=== PATIENT | female | born 2000 | race Caucasian/White ===

== ENCOUNTER 2022-05-22 00:53 | Inpatient (IN) ==
[2022-05-22 01:33] LABS: Basophils # (auto) 0.05 K/uL (0-0.2); Basophils % (auto) 0.4 %; Eosinophils # (auto) 0.04 K/uL (0-0.50); Eosinophils % (auto) 0.3 %; Hematocrit (blood only) 39.3 % (37.0-47.0); Hemoglobin 14.1 g/dl (12.0-16.0); Immature Granulocytes # (auto) 0.05 K/uL (0.01-0.20); Immature Granulocytes % (auto) 0.4 %; Lymphocytes # (auto) 1.04 K/uL (1.2-3.4); Mean Corpuscular Hemoglobin 30.1 pg (25.0-34.0); Mean Corpuscular Hgb Conc 35.9 g/dL (32.0-36.0); Mean Corpuscular Volume 83.8 fL (80.0-100.0); Mean Platelet Volume 9.7 fL (9.4-12.4); Monocytes # (auto) 0.73 K/uL (0.11-0.59); Monocytes % (auto) 5.6 %; Neutrophils # (auto) 11.13 K/uL (1.40-6.50); Neutrophils % (auto) 85.3 %; Platelet Count 260 K/uL (130-400); RDW Coefficient of Variation 12.1 % (11.5-14.5); RDW Standard Deviation 36.6 fL (36.4-46.3); Red Blood Count 4.69 M/uL (4.20-5.40); White Blood Count 13.04 K/ul (4.8-10.8)
--- NOTE | 2022-05-22 01:33 | Emergency Department Note ---
History of Present Illness General Chief complaint: Anxiety Stated complaint: PANICK ATTACK Time Seen by Provider: 05/22/22 01:10 History of Present Illness Maximum Pain Intensity: 6 22-year-old female presents emergency department states that she has anxiety and a panic attack. Patient recently broke up with her boyfriend of 2 years approximately 2 weeks ago and states that she has been having a rough time since. Patient states today she did cut herself in the thighs bilaterally. She did speak to her segment assembler today was placed on Lexapro for which she started this morning. Patient states that she had increased thoughts this evening racing thoughts she states and then had a panic attack. Patient denies any alcohol or drug ingestion. Patient has never been admitted for inpatient psychiatric treatment. Patient has no other complaints at this time Home Medications Medication Instructions Recorded Confirmed Type escitalopram oxalate 5 mg tablet 5 mg PO DAILY 05/22/22 05/22/22 History hydroxyzine HCl 25 mg tablet 25 mg PO TID PRN Anxiety 05/22/22 05/22/22 History Allergies Allergy/AdvReac Type Severity Reaction Status Date / Time No Known Allergies Allergy Verified 05/22/22 01:50 Past Med/Surg History Social History Smoking Status: Current some day smoker Tobacco Type: Cigarettes Hx Alcohol Use: No Hx Substance Use: No Feels Safe at Home: Yes Gender Identity: Female Immunizations: Past medical history is anxiety Review of Systems A total of 10 systems reviewed and were otherwise negative Psychiatric: + anxiety Physical Exam Vital Signs Vital Signs - 24 hr 05/22/22 00:56 05/22/22 01:51 05/22/22 03:00 Temperature 36.5 C Temperature Source Temporal Artery Scan Pulse Rate 133 H Pulse Rate [Finger] 112 H 98 H Pulse Rhythm [Finger] Regular Pulse Strength [Finger] Normal Respiratory Rate 20 24 20 Respiratory Effort / Characteristics Non-Labored Spontaneous Non-Labored Spontaneous Non-Labored Spontaneous Respiratory Depth Normal Normal Normal Respiratory Pattern Regular Blood Pressure 92/4 L Blood Pressure [Right Arm] 127/76 128/73 Blood Pressure Mean 33 Blood Pressure Mean [Right Arm] 93 91 Blood Pressure Position [Right Arm] Sitting Pulse Oximetry 100 97 98 Oxygen Delivery Method Room Air Room Air Room Air Sepsis Recent Fever Within 48 Hours No Sepsis New/Unexplained Change in Mental Status N/A Sepsis Action Taken by Nursing No Action Required GENERAL: Patient is awake alert in no acute distress patient is resting comfortably and showing no signs of anxiety EYES: The conjunctivae are clear. The pupils are round and reactive. EARS, NOSE, MOUTH AND THROAT: The nose is without any evidence of any deformity. Mucous membranes are moist. Tongue is midline. NECK: The neck is nontender and supple RESPIRATORY: Normal respiratory effort is noted there is no evidence of wheezing rhonchi or rales CARDIOVASCULAR: Regular rate and rhythm noted there no murmurs rubs or gallops normal S1 normal S2. GASTROINTESTINAL: The abdomen is soft. Abdomen is nontender. BACK: No midline tenderness or or step-off noted range of motion in flexion extension as well as rotation no signs of muscle spasm noted MUSCULOSKELETAL/EXTREMITIES: There is no evidence of gross deformity full range of motion is noted in the hips and shoulders. SKIN: There is no obvious evidence of any rash. There are no petechiae, pallor or cyanosis noted. NEUROLOGIC: Patient is awake alert and oriented x3 strength is symmetric Psych: anxious, current suicidal ideation no homicidal ideation Course Reevaluation(s) Reevaluation #1: Patient has been accepted by [facility] Patient is stable per home health care case manager. Patient will be admitted Time: 05:18 Medical Decision Making Medical Records Attestation: I reviewed the patient's medical records. Home Medications Current Medication List: was personally reviewed by me Laboratory Data Attestation: I reviewed the patient's lab results. Lab work reviewed by me unremarkable 05/22/22 01:20 05/22/22 01:20 Lab Results 05/22/22 05/22/22 05/22/22 Range/Units 01:05 01:05 01:05 WBC (4.8-10.8) K/ul RBC (4.20-5.40) M/uL Hgb (12.0-16.0) g/dl Hct (37.0-47.0) % MCV (80.0-100.0) fL MCH (25.0-34.0) pg MCHC (32.0-36.0) g/dL RDW Std Deviation (36.4-46.3) fL RDW Coeff of Serene (11.5-14.5) % Plt Count (130-400) K/uL MPV (9.4-12.4) fL Immature Gran % (Auto) % Neut % (Auto) % Lymph % (Auto) % [place] % (Auto) % Eos % (Auto) % Baso % (Auto) % Neut # (Auto) (1.40-6.50) K/uL Lymph # (Auto) (1.2-3.4) K/uL [place] # (Auto) (0.11-0.59) K/uL Eos # (Auto) (0-0.50) K/uL Baso # (Auto) (0-0.2) K/uL Immature Gran # (Auto) (0.01-0.20) K/uL Sodium (136-145) mmol/L Potassium (3.5-5.1) mmol/L Chloride (98-107) mmol/L Carbon Dioxide (21-32) mmol/L Anion Gap (3-11) BUN (6-23) mg/dl Creatinine (0.6-1.2) mg/dl Est Cr Clr Drug Dosing ml/min Est GFR ( Amer) ml/min Est GFR (Non-Af Amer) ml/min BUN/Creatinine Ratio (10-20) Glucose (70-99(Fasting)) mg/dl Calcium (8.5-10.1) mg/dl Total Bilirubin (0.2-1.0) mg/dl AST (13-39) U/L ALT (7-52) U/L Alkaline Phosphatase (34-104) U/L Total Protein (6.0-8.3) gm/dl Albumin (3.4-5.0) gm/dl Globulin (2.5-4.0) gm/dl Albumin/Globulin Ratio (0.9-2) TSH (0.300-4.500) uIu/ml Urine Color Yellow Urine Appearance Clear (Clear) Urine pH 6.5 (4.5-7.5) Ur Specific [place] 1.020 (1.000-1.030) Urine Protein Negative (Negative) Urine Glucose (UA) Negative (Negative) Urine Ketones Negative (Negative) Urine Blood Negative (Negative) Urine Nitrite Negative (Negative) Urine Bilirubin Negative (Negative) Urine Urobilinogen Negative (Negative) Ur Leukocyte Esterase Negative (Negative) POC Ur Test NEG (NEG) Salicylates (3.0-30) mg/dl Urine Opiates Screen Neg (Neg) Ur Methadone, Qual Neg (Neg) Acetaminophen (10-30) ug/ml Urine Barbiturates Neg (Neg) Ur Phencyclidine (PCP) Neg (Neg) U Amphetamin/Meth Scrn Neg (Neg) MDMA (Ecstasy) Screen Neg (Neg) U Benzodiazepines Scrn Neg (Neg) Ur Cocaine Metabolite Neg (Neg) U Marijuana (THC) Screen Neg (Neg) Ethyl Alcohol mg/dL (<10.0) mg/dl SARS-CoV-2, RNA, NAAT (NEGATIVE) 05/22/22 05/22/22 05/22/22 Range/Units 01:05 01:20 01:20 WBC 13.04 H (4.8-10.8) K/ul RBC 4.69 (4.20-5.40) M/uL Hgb 14.1 (12.0-16.0) g/dl Hct 39.3 (37.0-47.0) % MCV 83.8 (80.0-100.0) fL MCH 30.1 (25.0-34.0) pg MCHC 35.9 (32.0-36.0) g/dL RDW Std Deviation 36.6 (36.4-46.3) fL RDW Coeff of Serene 12.1 (11.5-14.5) % Plt Count 260 (130-400) K/uL MPV 9.7 (9.4-12.4) fL Immature Gran % (Auto) 0.4 % Neut % (Auto) 85.3 % Lymph % (Auto) 8.0 % [place] % (Auto) 5.6 % Eos % (Auto) 0.3 % Baso % (Auto) 0.4 % Neut # (Auto) 11.13 H (1.40-6.50) K/uL Lymph # (Auto) 1.04 L (1.2-3.4) K/uL [place] # (Auto) 0.73 H (0.11-0.59) K/uL Eos # (Auto) 0.04 (0-0.50) K/uL Baso # (Auto) 0.05 (0-0.2) K/uL Immature Gran # (Auto) 0.05 (0.01-0.20) K/uL Sodium 137 (136-145) mmol/L Potassium 3.5 (3.5-5.1) mmol/L Chloride 104 (98-107) mmol/L Carbon Dioxide 22 (21-32) mmol/L Anion Gap 11 (3-11) BUN 8 (6-23) mg/dl Creatinine 0.64 (0.6-1.2) mg/dl Est Cr Clr Drug Dosing 116.0 ml/min Est GFR ( Amer) 148.9 ml/min Est GFR (Non-Af Amer) 128.5 ml/min BUN/Creatinine Ratio 12.5 (10-20) Glucose 104 H (70-99(Fasting)) mg/dl Calcium 9.7 (8.5-10.1) mg/dl Total Bilirubin 0.9 (0.2-1.0) mg/dl AST 18 (13-39) U/L ALT 18 (7-52) U/L Alkaline Phosphatase 68 (34-104) U/L Total Protein 7.5 (6.0-8.3) gm/dl Albumin 4.6 (3.4-5.0) gm/dl Globulin 2.9 (2.5-4.0) gm/dl Albumin/Globulin Ratio 1.6 (0.9-2) TSH (0.300-4.500) uIu/ml Urine Color Urine Appearance (Clear) Urine pH (4.5-7.5) Ur Specific [place] (1.000-1.030) Urine Protein (Negative) Urine Glucose (UA) (Negative) Urine Ketones (Negative) Urine Blood (Negative) Urine Nitrite (Negative) Urine Bilirubin (Negative) Urine Urobilinogen (Negative) Ur Leukocyte Esterase (Negative) POC Ur Test (NEG) Salicylates (3.0-30) mg/dl Urine Opiates Screen (Neg) Ur Methadone, Qual (Neg) Acetaminophen (10-30) ug/ml Urine Barbiturates (Neg) Ur Phencyclidine (PCP) (Neg) U Amphetamin/Meth Scrn (Neg) MDMA (Ecstasy) Screen (Neg) U Benzodiazepines Scrn (Neg) Ur Cocaine Metabolite (Neg) U Marijuana (THC) Screen (Neg) Ethyl Alcohol mg/dL (<10.0) mg/dl SARS-CoV-2, RNA, NAAT NEGATIVE (NEGATIVE) 05/22/22 05/22/2223 Range/Units 01:20 01:20 01:20 WBC (4.8-10.8) K/ul RBC (4.20-5.40) M/uL Hgb (12.0-16.0) g/dl Hct (37.0-47.0) % MCV (80.0-100.0) fL MCH (25.0-34.0) pg MCHC (32.0-36.0) g/dL RDW Std Deviation (36.4-46.3) fL RDW Coeff of Serene (11.5-14.5) % Plt Count (130-400) K/uL MPV (9.4-12.4) fL Immature Gran % (Auto) % Neut % (Auto) % Lymph % (Auto) % [place] % (Auto) % Eos % (Auto) % Baso % (Auto) % Neut # (Auto) (1.40-6.50) K/uL Lymph # (Auto) (1.2-3.4) K/uL [place] # (Auto) (0.11-0.59) K/uL Eos # (Auto) (0-0.50) K/uL Baso # (Auto) (0-0.2) K/uL Immature Gran # (Auto) (0.01-0.20) K/uL Sodium (136-145) mmol/L Potassium (3.5-5.1) mmol/L Chloride (98-107) mmol/L Carbon Dioxide (21-32) mmol/L Anion Gap (3-11) BUN (6-23) mg/dl Creatinine (0.6-1.2) mg/dl Est Cr Clr Drug Dosing ml/min Est GFR ( Amer) ml/min Est GFR (Non-Af Amer) ml/min BUN/Creatinine Ratio (10-20) Glucose (70-99(Fasting)) mg/dl Calcium (8.5-10.1) mg/dl Total Bilirubin (0.2-1.0) mg/dl AST (13-39) U/L ALT (7-52) U/L Alkaline Phosphatase (34-104) U/L Total Protein (6.0-8.3) gm/dl Albumin (3.4-5.0) gm/dl Globulin (2.5-4.0) gm/dl Albumin/Globulin Ratio (0.9-2) TSH 0.886 (0.300-4.500) uIu/ml Urine Color Urine Appearance (Clear) Urine pH (4.5-7.5) Ur Specific [place] (1.000-1.030) Urine Protein (Negative) Urine Glucose (UA) (Negative) Urine Ketones (Negative) Urine Blood (Negative) Urine Nitrite (Negative) Urine Bilirubin (Negative) Urine Urobilinogen (Negative) Ur Leukocyte Esterase (Negative) POC Ur Test (NEG) Salicylates < 3.0 L (3.0-30) mg/dl Urine Opiates Screen (Neg) Ur Methadone, Qual (Neg) Acetaminophen < 3 L (10-30) ug/ml Urine Barbiturates (Neg) Ur Phencyclidine (PCP) (Neg) U Amphetamin/Meth Scrn (Neg) MDMA (Ecstasy) Screen (Neg) U Benzodiazepines Scrn (Neg) Ur Cocaine Metabolite (Neg) U Marijuana (THC) Screen (Neg) Ethyl Alcohol mg/dL < 10.0 (<10.0) mg/dl SARS-CoV-2, RNA, NAAT (NEGATIVE) MDM Narrative Medical decision making differential diagnosis anxiety, panic attack, suicidal ideation Plan is to check labs, case management consult Nursing notes were reviewed by me and appreciated Case management has interviewed the patient they feel that she has more suicidal ideations and will benefit from inpatient therapy Plan is to admit for inpatient therapy Patient was accepted to [facility] for [facility] treatment Impression & Plan Depression with suicidal ideation, Anxiety Discharge Plan Visit Data Chief Complaint: Anxiety Stated Complaint: PANICK ATTACK ED Provider: Jhon Minaya Discharge Problem: Depression with suicidal ideation, Anxiety Patient Disposition: Admitted As Inpatient Forms Stand Alone Forms: [facility], Suicide Prevention Resources Prescriptions Prescriptions: No Action escitalopram oxalate 5 mg tablet 5 mg PO DAILY hydroxyzine HCl 25 mg tablet 25 mg PO TID PRN (Reason: Anxiety) Referrals Referrals: [facility] [Primary Care Provider] -
[2022-05-22 01:45] LABS: Appearance Urine Clear (Clear); Bilirubin Urine Negative (Negative); Blood Urine Negative (Negative); Color Urine Yellow; Glucose Urine UA Negative (Negative); Ketones Urine Negative (Negative); Leukocyte Esterase Urine Negative (Negative); Nitrite Urine Negative (Negative); Protein Urine Negative (Negative); Urobilinogen Urine Negative (Negative); pH Urine 6.5 (4.5-7.5)
[2022-05-22 01:52] LABS: Albumin Level 4.6 gm/dl (3.4-5.0); Bilirubin,Total 0.9 mg/dl (0.2-1.0); Calcium 9.7 mg/dl (8.5-10.1); Potassium 3.5 mmol/L (3.5-5.1)
[2022-05-22 01:56] LABS: Acetaminophen < 3 ug/ml (10-30); Salicylate < 3.0 mg/dl (3.0-30)
[2022-05-22 01:58] LABS: Albumin Globulin Ratio 1.6 (0.9-2); BUN Creatinine Ratio 12.5 (10-20); Est GFR (African American) 148.9 ml/min; Est GFR (Non-African American) 128.5 ml/min; Globulin 2.9 gm/dl (2.5-4.0); Total Protein 7.5 gm/dl (6.0-8.3)
[2022-05-22 02:24] LABS: Amphetamines+Metham, Urine Neg (Neg); Barbiturates, Urine Neg (Neg); Benzodiazepine, Urine Neg (Neg); Cocaine, Urine Neg (Neg); MDMA (Ecstacy), Urine Neg (Neg); Methadone, Urine Neg (Neg); Opiate, Urine Neg (Neg); Phencyclidine, Urine Neg (Neg)
[2022-05-22] MEDS ORDERED: BISMUTH SUBSALICYLATE LIQD 236 ML PO PRN (05:20)
[2022-05-22] MEDS ORDERED: SODIUM CHLORIDE 0.65% NA SOLN 45 ML (OCEAN) PRN (05:20)
[2022-05-22] MEDS ORDERED: MAGNESIUM HYDROXIDE SUSP 30 ML UDC PO PRN (05:20)
[2022-05-22] MEDS ORDERED: ALUMINUM/MAGNESIUM SUSP 30 ML UDC PO PRN (05:20)
[2022-05-22] MEDS: ESCITALOPRAM OXALATE 10 MG TAB PO SCH (10:01)
[2022-05-22] MEDS: ACETAMINOPHEN 325 MG TAB PO PRN (13:59)
[2022-05-22] MEDS: NICOTINE POLACRILEX 2 MG GUM MT PRN ×2 (14:16→19:56)
--- NOTE | 2022-05-22 17:44 | History & Physical ---
Date of Service May 22, 2022 Impression / Recommendations Impression Worsening depressed mood and panic post-breakup in a young woman with probable OCD (1) Major depressive disorder, single episode, severe without psychotic features: (2) Panic disorder: (3) JENARO (generalized anxiety disorder): Plan Discussed at length prioritizing syndromes by potential severity - i.e., focusing on depresion and panic now while keeping OCD in mind and considering possibility of ADHD later. Discussed at length treatment options, focusing on SNRI, which could be effective for major depression, panic disorder, and OCD. Will start duloxetine [address] of escitalopram with plan of titrating to 40 mg daily as tolerated. Will use hydroxyzine for immediate management of panic/anxiety. Inventory Assets Strengths: intelligent, supportive family members Needs: has little privacy, some stigma about treatment Suicide Risk Level Suicide Risk Level: Low (q15 min observation checks) Risk Factors Assessment Male: No : Yes Do You Have Access To A Gun?: No Health Problems: No Mental Health Diagnoses: No Previous Attempt: No Family History of Suicide: No Previous Psychiatric Hospitalization: No Protective Factors Assessment Employed: No Psychiatric History Identifying Data RUBEN ESPINO is a 22-year-old F who currently lives in a 1-bedroom apartment with 3 roommates, has a history of no previously-recognized psychiatric problems, and was admitted on 05/22/22 05:20 on a 201 voluntary commitment for panic and self-cutting. Chief Complaint "I'm just so anxious". History of Present Illness Pt had a recent breakup with her long-distance boyfriend of 2 years recently, which she cites along with the stresses of having started college as what she thinks has led to significant worsening of her long-standing anxiety. She been having increasingly frequent, longer-lasting, and more severe panic episodes. While she says she hasn't felt suicidal, she has felt overwhelmed and helpless and has been cutting in an attempt to "feel something". She has not slept well, has little appetite, and is less interested in as well as less able to enjoy her usual activities. She wonders if she "might have OCD" like her father. She reports constant intrusive self-doubts, a horror of making anyone mad at her, a need to have belongings arranged "properly" in ways she can't really describe. She must keep books pristine to the extent of not actually reading them. She often counts her steps in order to ensure that she arrives at certain waypoints at a multiple of 10. In restaurants she must sit in a specific seat that's dictated by where certain others (including strangers) sit. She notes a family history of anxiety and that her father has severe (and as far she knows untreated) OCD. Past Psychiatric History Previous Psych History: Has never had psychiatric evaluation or treatment (was started on escitalopram by PCP the day prior to presentation) Current Psychiatric Diagnosis: MDD, anxiety, wants to be evaluated for OCD and ADHD Do You Have Access To A Gun?: No History of Previous Suicide Attempt: Yes (at 16y old) Allergies Allergy/AdvReac Type Severity Reaction Status Date / Time No Known Allergies Allergy Verified 05/22/22 01:50 Home Medications Medication Instructions Recorded Confirmed Type escitalopram oxalate 5 mg tablet 5 mg PO DAILY 05/22/22 05/22/22 History hydroxyzine HCl 25 mg tablet 25 mg PO TID PRN Anxiety 05/22/22 05/22/22 History Family History Family History of: Depression and Anxiety Family Mental Health History Comment: Dad - OCD, anxiety, dad's side of family all has anxiety Mom's side does not talk about or acknowledge mental health Alcohol History Hx of Alcohol Use Over the Past 12 Months: No AUDIT Total Score: 0 Smoking Use Have You Smoked or Used Tobacco Products in the Last 30 Days: Yes tobacco type: cigarettes and e-cigarettes Smoking Status: Current some day smoker Smoking packs per day: 0.5 Substance History Hx of Prescription Med Misuse Over the Past 12 Months: No Hx of Over the Counter Med Misuse Over the Past 12 Months: No Hx of Inhalent Misuse Over the Past 12 Months: No Hx of Organic Substance Use Over the Past 12 Months: No Hx of Illegal Substances/Street Drug Use Over Past 12 Months: No Problems as a Result of Past Substance Use: None Identified Personal History Living Arrangements: Apartment Living Arrangements Comments: [address], [place] [address] Highest Grade Completed: Some 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 Marital Status: Single Number Of Children: 0 Beliefs That Will Affect Care: None Patient History Social History Smoking Status: Current some day smoker Tobacco Type: Cigarettes Hx Alcohol Use: No Hx Substance Use: No Preferred Language: [place] Communication Ability: Effective 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 Beliefs That Will Affect Care: None Feels Safe at Home: Yes Gender Identity: Female Assistive Devices: None Physical Exam Psychiatric: Orientation: alert, oriented x 3 and cooperative Apperance: appropriately dressed and appeared stated age Eye Contact: + poor eye contact Motor Behavior: + psychomotor agitation slow, quiet, brief Affect: + anxious affect and + tearful affect Mood: + depressed mood and + anxious mood Thought Process: linear/logical thought process and clear/coherent thought process Thought Content: + obsessions, + cognitive distortions, + compulsions, + phobias and + loneliness Suicidal Thoughts: denies suicidal thoughts Homicidal Thoughts: denies homicidal thoughts Hallucinations: no auditory hallucinations and no visual hallucinations Cognition: recent memory grossly intact, remote memory grossly intact and attention grossly intact Estimated Intelligence: average estimated intelligence Insight: + fair insight Judgement: good judgement Vital Signs (Past 24 Hours): Last Vital Signs Temp 37 C 05/22/22 06:37 Pulse 96 H 05/22/22 06:38 Resp 18 05/22/22 06:37 BP 119/77 05/22/22 06:38 Pulse Ox 98 05/22/22 03:00 O2 Del Method 05/22/22 05:44 Results & Data ([facility]) Laboratory Results Laboratory Results - last 24 hr 05/22/22 05/22/22 05/22/22 01:05 01:05 01:05 WBC RBC Hgb Hct MCV MCH MCHC RDW Std Deviation RDW Coeff of Serene Plt Count MPV Immature Gran % (Auto) Neut % (Auto) Lymph % (Auto) [place] % (Auto) Eos % (Auto) Baso % (Auto) Neut # (Auto) Lymph # (Auto) [place] # (Auto) Eos # (Auto) Baso # (Auto) Immature Gran # (Auto) Sodium Potassium Chloride Carbon Dioxide Anion Gap BUN Creatinine Est Cr Clr Drug Dosing Est GFR ( Amer) Est GFR (Non-Af Amer) BUN/Creatinine Ratio Glucose Calcium Total Bilirubin AST ALT Alkaline Phosphatase Total Protein Albumin Globulin Albumin/Globulin Ratio TSH Urine Color Yellow Urine Appearance Clear Urine pH 6.5 Ur Specific [place] 1.020 Urine Protein Negative Urine Glucose (UA) Negative Urine Ketones Negative Urine Blood Negative Urine Nitrite Negative Urine Bilirubin Negative Urine Urobilinogen Negative Ur Leukocyte Esterase Negative POC Ur Test NEG Salicylates Urine Opiates Screen Neg Ur Methadone, Qual Neg Acetaminophen Urine Barbiturates Neg Ur Phencyclidine (PCP) Neg U Amphetamin/Meth Scrn Neg MDMA (Ecstasy) Screen Neg U Benzodiazepines Scrn Neg Ur Cocaine Metabolite Neg U Marijuana (THC) Screen Neg Ethyl Alcohol mg/dL SARS-CoV-2, RNA, NAAT 05/22/22 05/22/22 05/22/22 01:05 01:20 01:20 WBC 13.04 H RBC 4.69 Hgb 14.1 Hct 39.3 MCV 83.8 MCH 30.1 MCHC 35.9 RDW Std Deviation 36.6 RDW Coeff of Serene 12.1 Plt Count 260 MPV 9.7 Immature Gran % (Auto) 0.4 Neut % (Auto) 85.3 Lymph % (Auto) 8.0 [place] % (Auto) 5.6 Eos % (Auto) 0.3 Baso % (Auto) 0.4 Neut # (Auto) 11.13 H Lymph # (Auto) 1.04 L [place] # (Auto) 0.73 H Eos # (Auto) 0.04 Baso # (Auto) 0.05 Immature Gran # (Auto) 0.05 Sodium 137 Potassium 3.5 Chloride 104 Carbon Dioxide 22 Anion Gap 11 BUN 8 Creatinine 0.64 Est Cr Clr Drug Dosing 116.0 Est GFR ( Amer) 148.9 Est GFR (Non-Af Amer) 128.5 BUN/Creatinine Ratio 12.5 Glucose 104 H Calcium 9.7 Total Bilirubin 0.9 AST 18 ALT 18 Alkaline Phosphatase 68 Total Protein 7.5 Albumin 4.6 Globulin 2.9 Albumin/Globulin Ratio 1.6 TSH Urine Color Urine Appearance Urine pH Ur Specific [place] Urine Protein Urine Glucose (UA) Urine Ketones Urine Blood Urine Nitrite Urine Bilirubin Urine Urobilinogen Ur Leukocyte Esterase POC Ur Test Salicylates Urine Opiates Screen Ur Methadone, Qual Acetaminophen Urine Barbiturates Ur Phencyclidine (PCP) U Amphetamin/Meth Scrn MDMA (Ecstasy) Screen U Benzodiazepines Scrn Ur Cocaine Metabolite U Marijuana (THC) Screen Ethyl Alcohol mg/dL SARS-CoV-2, RNA, NAAT NEGATIVE 05/22/22 05/22/22 05/22/22 01:20 01:20 01:20 WBC RBC Hgb Hct MCV MCH MCHC RDW Std Deviation RDW Coeff of Serene Plt Count MPV Immature Gran % (Auto) Neut % (Auto) Lymph % (Auto) [place] % (Auto) Eos % (Auto) Baso % (Auto) Neut # (Auto) Lymph # (Auto) [place] # (Auto) Eos # (Auto) Baso # (Auto) Immature Gran # (Auto) Sodium Potassium Chloride Carbon Dioxide Anion Gap BUN Creatinine Est Cr Clr Drug Dosing Est GFR ( Amer) Est GFR (Non-Af Amer) BUN/Creatinine Ratio Glucose Calcium Total Bilirubin AST ALT Alkaline Phosphatase Total Protein Albumin Globulin Albumin/Globulin Ratio TSH 0.886 Urine Color Urine Appearance Urine pH Ur Specific [place] Urine Protein Urine Glucose (UA) Urine Ketones Urine Blood Urine Nitrite Urine Bilirubin Urine Urobilinogen Ur Leukocyte Esterase POC Ur Test Salicylates < 3.0 L Urine Opiates Screen Ur Methadone, Qual Acetaminophen < 3 L Urine Barbiturates Ur Phencyclidine (PCP) U Amphetamin/Meth Scrn MDMA (Ecstasy) Screen U Benzodiazepines Scrn Ur Cocaine Metabolite U Marijuana (THC) Screen Ethyl Alcohol mg/dL < 10.0 SARS-CoV-2, RNA, NAAT Current Inpatient Medications Current Inpatient Medications: Current Inpatient Medications Acetaminophen (Acetaminophen 325 Mg Tab) 650 mg PO Q4H PRN PRN Reason: Headache or Minor Fever Stop: 06/21/22 05:19 Last Admin: 05/22/22 13:59 Dose: 650 mg Al Hydrox/Mg Hydrox/Simethicone (Aluminum/Magnesium Susp 30 Ml Udc) 30 ml PO Q4H PRN PRN Reason: GI Upset Stop: 06/21/22 05:19 Bismuth Subsalicylate (Bismuth Subsalicylate Liqd 236 Ml) 15 ml PO PRN PRN PRN Reason: Loose Stool Stop: 06/21/22 05:19 Escitalopram Oxalate (Escitalopram Oxalate 10 Mg Tab) 5 mg PO QAM [place]APARR[place] Stop: 06/21/22 08:59 Last Admin: 05/22/22 10:01 Dose: 5 mg Hydroxyzine HCl (Hydroxyzine Hcl 25 Mg Tab) 50 mg PO HSZ PRN PRN Reason: Insomnia Stop: 06/21/22 05:19 Hydroxyzine HCl (Hydroxyzine Hcl 25 Mg Tab) 25 mg PO Q4H PRN PRN Reason: Anxiety Stop: 06/21/22 05:19 Magnesium Hydroxide (Magnesium Hydroxide Susp 30 Ml Udc) 30 ml PO DAILY PRN PRN Reason: Constipation Stop: 06/21/22 05:19 Miscellaneous (Remove Nicoderm Patch) 1 each N/A DAILY@0859 [facility] Stop: 06/22/22 08:58 Nicotine (Nicotine 14 Mg/24 Hr Patch) 14 mg TD QAM [facility] Stop: 06/22/22 08:59 Nicotine Polacrilex (Nicotine Polacrilex 2 Mg Gum) 1 - 2 piece MT Q4 PRN PRN Reason: nicotine withdrawal Stop: 06/21/22 13:53 Last Admin: 05/22/22 14:16 Dose: 1 piece Sodium Chloride (Sodium Chloride 0.65% Na Soln 45 Ml ([place])) 1 - 2 sprays NA PRN PRN PRN Reason: Nasal Dryness/Congestion Stop: 06/21/22 05:19
[2022-05-23] MEDS: hydrOXYzine HCl 25 MG TAB PO PRN ×2 (02:05→17:09)
[2022-05-23] MEDS: ESCITALOPRAM OXALATE 10 MG TAB PO SCH (10:54)
[2022-05-23] MEDS: DULoxetine HCL 20 MG CAP PO SCH (10:54)
[2022-05-23] MEDS: NICOTINE 14 MG/24 HR PATCH TD SCH (10:54)
[2022-05-23] MEDS: ACETAMINOPHEN 325 MG TAB PO PRN ×2 (11:17→22:42)
--- NOTE | 2022-05-23 11:22 | Psychiatric Progress Note ---
Date of Service May 23, 2022 Impression / Recommendations Impression Worsening depressed mood and panic post-breakup in a young woman with probable OCD (1) Major depressive disorder, single episode, severe without psychotic features: (2) Panic disorder: (3) JENARO (generalized anxiety disorder): Plan Discussed at length prioritizing syndromes by potential severity - i.e., focusing on depresion and panic now while keeping OCD in mind and considering possibility of ADHD later. Discussed at length treatment options, focusing on SNRI, which could be effective for major depression, panic disorder, and OCD. Will start duloxetine [address] of escitalopram with plan of titrating to 40 mg daily as tolerated. Will use hydroxyzine for immediate management of panic/anxiety. Inventory Assets Strengths: intelligent, supportive family members Needs: has little privacy, some stigma about treatment Suicide Risk Level Suicide Risk Level: Low (q15 min observation checks) Risk Factors Assessment Male: No : Yes Do You Have Access To A Gun?: No Health Problems: No Mental Health Diagnoses: No Previous Attempt: No Family History of Suicide: No Previous Psychiatric Hospitalization: No Protective Factors Assessment Employed: No Interval History Chief Complaint "[]". Review of Systems Sleep Information Total Hours of Sleep: 6.5 Sleep Comments: Reported difficulty sleeping and anxiety; received Vistaril for sleep and given sound machine and headphones Meal Information Percent Meal Consumed - Breakfast: 20 Percent Meal Consumed - Lunch: 70 Percent Meal Consumed - Dinner: 20 Subjective Subjective Patient was seen & assessed and interval progress reviewed with [treatment team] [nursing and social work] Physical Exam Psychiatric Orientation: alert, oriented x 3 and cooperative Apperance: appropriately dressed and appeared stated age Eye Contact: + poor eye contact Motor Behavior: + psychomotor agitation Affect: + anxious affect and + tearful affect Mood: + depressed mood and + anxious mood Thought Process: linear/logical thought process and clear/coherent thought process Thought Content: + obsessions, + cognitive distortions, + compulsions, + phobias and + loneliness Suicidal Thoughts: denies suicidal thoughts Homicidal Thoughts: denies homicidal thoughts Hallucinations: no auditory hallucinations and no visual hallucinations Cognition: recent memory grossly intact, remote memory grossly intact and attention grossly intact Estimated Intelligence: average estimated intelligence Insight: + fair insight Judgement: good judgement Vital Signs (Past 24 Hours) Last Vital Signs Temp 37 C 05/23/22 06:35 Pulse 101 H 05/23/22 06:36 Resp 16 05/23/22 06:35 BP 109/69 05/23/22 06:36 Pulse Ox 98 05/22/22 19:16 O2 Del Method 05/22/22 19:16 Results & Data ([facility]) Current Inpatient Medications Current Inpatient Medications: Current Inpatient Medications Acetaminophen (Acetaminophen 325 Mg Tab) 650 mg PO Q4H PRN PRN Reason: Headache or Minor Fever Stop: 06/21/22 05:19 Last Admin: 05/23/22 11:17 Dose: 650 mg Al Hydrox/Mg Hydrox/Simethicone (Aluminum/Magnesium Susp 30 Ml Udc) 30 ml PO Q4H PRN PRN Reason: GI Upset Stop: 06/21/22 05:19 Bismuth Subsalicylate (Bismuth Subsalicylate Liqd 236 Ml) 15 ml PO PRN PRN PRN Reason: Loose Stool Stop: 06/21/22 05:19 Duloxetine HCl (Duloxetine Hcl 20 Mg Cap) 20 mg PO QAM [facility] Stop: 06/22/22 08:59 Last Admin: 05/23/22 10:54 Dose: 20 mg Escitalopram Oxalate (Escitalopram Oxalate 10 Mg Tab) 5 mg PO QAM [facility] Stop: 06/21/22 08:59 Last Admin: 05/23/22 10:54 Dose: 5 mg Hydroxyzine HCl (Hydroxyzine Hcl 25 Mg Tab) 50 mg PO HSZ PRN PRN Reason: Insomnia Stop: 06/21/22 05:19 Last Admin: 05/23/22 02:05 Dose: 50 mg Hydroxyzine HCl (Hydroxyzine Hcl 25 Mg Tab) 25 mg PO Q4H PRN PRN Reason: Anxiety Stop: 06/21/22 05:19 Magnesium Hydroxide (Magnesium Hydroxide Susp 30 Ml Udc) 30 ml PO DAILY PRN PRN Reason: Constipation Stop: 06/21/22 05:19 Miscellaneous (Remove Nicoderm Patch) 1 each N/A DAILY@0859 [facility] Stop: 06/22/22 08:58 Last Admin: 05/23/22 10:54 Dose: Not Given Nicotine (Nicotine 14 Mg/24 Hr Patch) 14 mg TD QAM [facility] Stop: 06/22/22 08:59 Last Admin: 05/23/22 10:54 Dose: 14 mg Nicotine Polacrilex (Nicotine Polacrilex 2 Mg Gum) 1 - 2 piece MT Q4 PRN PRN Reason: nicotine withdrawal Stop: 06/21/22 13:53 Last Admin: 05/22/22 19:56 Dose: 2 piece Prazosin HCl (Prazosin Hcl 1 Mg Cap) 0.1 mg PO HS [facility] Stop: 06/22/22 21:59 Sodium Chloride (Sodium Chloride 0.65% Na Soln 45 Ml ([place])) 1 - 2 sprays NA PRN PRN PRN Reason: Nasal Dryness/Congestion Stop: 06/21/22 05:19
--- NOTE | 2022-05-23 19:06 | Psychiatric Progress Note ---
Date of Service May 23, 2022 Impression / Recommendations Impression Reports poor sleep with vivid nightmares that she still can't stop thinking about. She volunteers that she will not divulge the content. Is certainly a bit more talkative and interactive today. Voices surprise to learn that other people have symptoms similar to hers. Discussed trial of prazosin for nightmares at length. (1) Major depressive disorder, single episode, severe without psychotic features : (2) Panic disorder: (3) JENARO (generalized anxiety disorder): Plan 05/23/22: Start prazosin 0.1 mg PO QHS. Anticipate titration of duloxetine to 30 mg tomorrow. 05/22/22: Discussed at length prioritizing syndromes by potential severity - i.e., focusing on depression and panic now while keeping OCD in mind and considering possibility of ADHD later. Discussed at length treatment options, focusing on SNRI, which could be effective for major depression, panic disorder, and OCD. Will start duloxetine [address] of escitalopram with plan of titr ating to 40 mg daily as tolerated. Will use hydroxyzine for immediate management of panic/anxiety. Inventory Assets Strengths: intelligent, supportive family members Needs: has little privacy, some stigma about treatment Suicide Risk Level Suicide Risk Level: Low (q15 min observation checks) Risk Factors Assessment Male: No : Yes Do You Have Access To A Gun?: No Health Problems: No Mental Health Diagnoses: No Previous Attempt: No Family History of Suicide: No Previous Psychiatric Hospitalization: No Protective Factors Assessment Employed: No Interval History Identifying Information 22 y/o woman with no psychiatric history who presented with panic, obsessions, and suicidal fears Chief Complaint "Managing". Review of Systems Sleep Information Total Hours of Sleep: 6.5 Sleep Comments: Reported difficulty sleeping and anxiety; received Vistaril for sleep and given sound machine and headphones Meal Information Percent Meal Consumed - Breakfast: 20 Percent Meal Consumed - Lunch: 70 Percent Meal Consumed - Dinner: 20 Subjective Subjective Patient was seen & assessed and interval progress reviewed with treatment team nursing and social work Physical Exam Psychiatric Orientation: alert, oriented x 3 and cooperative Apperance: appropriately dressed and appeared stated age Eye Contact: + fair eye contact Motor Behavior: + psychomotor agitation Affect: + anxious affect and + tearful affect Mood: + depressed mood and + anxious mood Thought Process: linear/logical thought process and clear/coherent thought process Thought Content: + obsessions, + cognitive distortions, + compulsions and + phobias Suicidal Thoughts: denies suicidal thoughts Homicidal Thoughts: denies homicidal thoughts Hallucinations: no auditory hallucinations and no visual hallucinations Cognition: recent memory grossly intact, remote memory grossly intact and attention grossly intact Estimated Intelligence: average estimated intelligence Insight: + fair insight Judgement: good judgement Vital Signs (Past 24 Hours) Last Vital Signs Temp 37 C 05/23/22 06:35 Pulse 101 H 05/23/22 06:36 Resp 16 05/23/22 06:35 BP 109/69 05/23/22 06:36 Pulse Ox 98 05/22/22 19:16 O2 Del Method 05/22/22 19:16 Results & Data ([facility]) Current Inpatient Medications Current Inpatient Medications: Current Inpatient Medications Acetaminophen (Acetaminophen 325 Mg Tab) 650 mg PO Q4H PRN PRN Reason: Headache or Minor Fever Stop: 06/21/22 05:19 Last Admin: 05/23/22 11:17 Dose: 650 mg Al Hydrox/Mg Hydrox/Simethicone (Aluminum/Magnesium Susp 30 Ml Udc) 30 ml PO Q4H PRN PRN Reason: GI Upset Stop: 06/21/22 05:19 Bismuth Subsalicylate (Bismuth Subsalicylate Liqd 236 Ml) 15 ml PO PRN PRN PRN Reason: Loose Stool Stop: 06/21/22 05:19 Duloxetine HCl (Duloxetine Hcl 20 Mg Cap) 20 mg PO QAM [facility] Stop: 06/22/22 08:59 Last Admin: 05/23/22 10:54 Dose: 20 mg Escitalopram Oxalate (Escitalopram Oxalate 10 Mg Tab) 5 mg PO QAM [facility] Stop: 06/21/22 08:59 Last Admin: 05/23/22 10:54 Dose: 5 mg Hydroxyzine HCl (Hydroxyzine Hcl 25 Mg Tab) 50 mg PO HSZ PRN PRN Reason: Insomnia Stop: 06/21/22 05:19 Last Admin: 05/23/22 02:05 Dose: 50 mg Hydroxyzine HCl (Hydroxyzine Hcl 25 Mg Tab) 25 mg PO Q4H PRN PRN Reason: Anxiety Stop: 06/21/22 05:19 Last Admin: 05/23/22 17:09 Dose: 25 mg Magnesium Hydroxide (Magnesium Hydroxide Susp 30 Ml Udc) 30 ml PO DAILY PRN PRN Reason: Constipation Stop: 06/21/22 05:19 Miscellaneous (Remove Nicoderm Patch) 1 each N/A DAILY@0859 [facility] Stop: 06/22/22 08:58 Last Admin: 05/23/22 10:54 Dose: Not Given Nicotine (Nicotine 14 Mg/24 Hr Patch) 14 mg TD QAM [facility] Stop: 06/22/22 08:59 Last Admin: 05/23/22 10:54 Dose: 14 mg Nicotine Polacrilex (Nicotine Polacrilex 2 Mg Gum) 1 - 2 piece MT Q4 PRN PRN Reason: nicotine withdrawal Stop: 06/21/22 13:53 Last Admin: 05/22/22 19:56 Dose: 2 piece Prazosin HCl (Prazosin Hcl 1 Mg Cap) 0.1 mg PO HS [facility] Stop: 06/22/22 21:59 Sodium Chloride (Sodium Chloride 0.65% Na Soln 45 Ml ([place])) 1 - 2 sprays NA PRN PRN PRN Reason: Nasal Dryness/Congestion Stop: 06/21/22 05:19
[2022-05-23] MEDS ORDERED: PRAZOSIN HCL 1 MG CAP PO SCH ×2 (22:00)
[2022-05-24] MEDS: ESCITALOPRAM OXALATE 10 MG TAB PO SCH (10:12)
[2022-05-24] MEDS: DULoxetine HCL 20 MG CAP PO SCH (10:12)
[2022-05-24] MEDS: NICOTINE 14 MG/24 HR PATCH TD SCH (10:13)
--- NOTE | 2022-05-24 12:18 | Psychiatric Progress Note ---
Date of Service May 24, 2022 Impression / Recommendations Impression 05/24/22: Attributes no benefit to prazosin 1 mg last night - had a vivid, distresing nightmare. Has been participating in the therapeutic program and the unit milieu. Is in constant motion, with a box-step movement that she says is to a degree self-soothing and to a degree compulsive (in that she feels more anxious if she suppresses it). Tolerating medication well. 05/23/22: Reports poor sleep with vivid nightmares that she still can't stop thinking about. She volunteers that she will not divulge the content. Is certainly a bit more talkative and interactive today. Voices surprise to learn that other people have symptoms similar to hers. Discussed trial of prazosin for nightmares at length. (1) Major depressive disorder, single episode, severe without psychotic features: (2) Panic disorder: (3) JENARO (generalized anxiety disorder): Plan 05/24/22: Increase prazosin to 2 mg QHS. Discontinue escitalopram to conclude taper. Increase duloxetine to 30 mg. 05/23/22: Start prazosin 1 mg PO QHS. Anticipate titration of duloxetine to 30 mg tomorrow. 05/22/22: Discussed at length prioritizing syndromes by potential severity - i.e., focusing on depression and panic now while keeping OCD in mind and considering possibility of ADHD later. Discussed at length treatment options, focusing on SNRI, which could be effective for major depression, panic disorder, and OCD. Will start duloxetine [address] of escitalopram with plan of titrating to 40 mg daily as tolerated. Will use hydroxyzine for immediate management of panic/anxiety. Suicide Risk Level Suicide Risk Level: Low (q15 min observation checks) Risk Factors Assessment Male: No : Yes Do You Have Access To A Gun?: No Health Problems: No Mental Health Diagnoses: No Previous Attempt: No Family History of Suicide: No Previous Psychiatric Hospitalization: No Protective Factors Assessment Employed: No Interval History Identifying Information RUBEN ESPINO is a 22-year-old F who currently lives in a 1-bedroom apartment with 3 roommates, has a history of no previously-recognized psychiatric problems, and was admitted on 05/22/22 05:20 on a 201 voluntary commitment for panic and self-cutting. Chief Complaint "Well, no worse anyway". Review of Systems Sleep Information Total Hours of Sleep: 4.5 Sleep Comments: Reported difficulty sleeping and anxiety; received Vistaril for sleep and given sound machine and headphones Meal Information Percent Meal Consumed - Breakfast: 20 Percent Meal Consumed - Lunch: 50 Percent Meal Consumed - Dinner: 20 Subjective Subjective Patient was seen & assessed and interval progress reviewed with treatment team nursing and social work Physical Exam Psychiatric Orientation: alert, oriented x 3 and cooperative Apperance: appropriately dressed and appeared stated age Eye Contact: + fair eye contact and + poor eye contact Motor Behavior: + psychomotor agitation Affect: + anxious affect and + tearful affect Mood: + depressed mood and + anxious mood Thought Process: linear/logical thought process and clear/coherent thought process Thought Content: + obsessions, + cognitive distortions, + compulsions, + phobias and + loneliness Suicidal Thoughts: denies suicidal thoughts Homicidal Thoughts: denies homicidal thoughts Hallucinations: no auditory hallucinations and no visual hallucinations Cognition: recent memory grossly intact, remote memory grossly intact and attention grossly intact Estimated Intelligence: average estimated intelligence Insight: + fair insight Judgement: good judgement Vital Signs (Past 24 Hours) Last Vital Signs Temp 36.7 C 05/24/22 06:40 Pulse 98 H 05/24/22 06:40 Resp 16 05/24/22 06:40 BP 104/66 05/24/22 06:40 Pulse Ox 98 05/22/22 19:16 O2 Del Method 05/22/22 19:16 Results & Data ([facility]) Current Inpatient Medications Current Inpatient Medications: Current Inpatient Medications Acetaminophen (Acetaminophen 325 Mg Tab) 650 mg PO Q4H PRN PRN Reason: Headache or Minor Fever Stop: 06/21/22 05:19 Last Admin: 05/23/22 22:42 Dose: 650 mg Al Hydrox/Mg Hydrox/Simethicone (Aluminum/Magnesium Susp 30 Ml Udc) 30 ml PO Q4H PRN PRN Reason: GI Upset Stop: 06/21/22 05:19 Bismuth Subsalicylate (Bismuth Subsalicylate Liqd 236 Ml) 15 ml PO PRN PRN PRN Reason: Loose Stool Stop: 06/21/22 05:19 Duloxetine HCl (Duloxetine Hcl 20 Mg Cap) 20 mg PO QAM [facility] Stop: 06/22/22 08:59 Last Admin: 05/24/22 10:12 Dose: 20 mg Escitalopram Oxalate (Escitalopram Oxalate 10 Mg Tab) 5 mg PO QAM [facility] Stop: 06/21/22 08:59 Last Admin: 05/24/22 10:12 Dose: 5 mg Hydroxyzine HCl (Hydroxyzine Hcl 25 Mg Tab) 50 mg PO HSZ PRN PRN Reason: Insomnia Stop: 06/21/22 05:19 Last Admin: 05/23/22 02:05 Dose: 50 mg Hydroxyzine HCl (Hydroxyzine Hcl 25 Mg Tab) 25 mg PO Q4H PRN PRN Reason: Anxiety Stop: 06/21/22 05:19 Last Admin: 05/23/22 17:09 Dose: 25 mg Magnesium Hydroxide (Magnesium Hydroxide Susp 30 Ml Udc) 30 ml PO DAILY PRN PRN Reason: Constipation Stop: 06/21/22 05:19 Miscellaneous (Remove Nicoderm Patch) 1 each N/A DAILY@0859 [facility] Stop: 06/22/22 08:58 Last Admin: 05/24/22 10:14 Dose: Not Given Nicotine (Nicotine 14 Mg/24 Hr Patch) [facility] [place] [facility] [place]: 06/22/22 08:59 Last Admin: 05/24/22 10:13 Dose: 14 mg Nicotine Polacrilex (Nicotine Polacrilex 2 Mg Gum) 1 - 2 piece MT Q4 PRN PRN Reason: nicotine withdrawal Stop: 06/21/22 13:53 Last Admin: 05/22/22 19:56 Dose: 2 piece Prazosin HCl (Prazosin Hcl 1 Mg Cap) 1 mg PO HS [facility] Stop: 06/22/22 21:59 Last Admin: 05/23/22 21:26 Dose: 1 mg Sodium Chloride (Sodium Chloride 0.65% Na Soln 45 Ml ([place])) 1 - 2 sprays NA PRN PRN PRN Reason: Nasal Dryness/Congestion Stop: 06/21/22 05:19
[2022-05-24] MEDS: hydrOXYzine HCl 25 MG TAB PO PRN (16:54)
[2022-05-24] MEDS ORDERED: PRAZOSIN HCL 1 MG CAP PO SCH (22:00)
[2022-05-25] MEDS ORDERED: ESCITALOPRAM OXALATE 10 MG TAB PO SCH (09:00)
--- NOTE | 2022-05-25 09:12 | Psychiatric Progress Note ---
Date of Service May 25, 2022 Impression / Recommendations Impression 05/25/22: Reports some improvement in vivid dreams in that the content was not frightening. However, she has constant intrusive thoughts of her dream last night and finds herself "trying to fix it" in her mind. She "had a meltdown" with no identifiable precipitant according to her (staff think it was related to her having "passed a love note" to a male peer and not getting the response she wanted). She attributes no side effects to medication, including dizziness or lightheadedness. Her most recent BP was 86/55 and I reviewed with her that this might be a reason not to increase prazosin. She would nevertheless very much like to increase since she saw a partial benefit last night. 05/24/22: Attributes no benefit to prazosin 1 mg last night - had a vivid, distressing nightmare. Has been participating in the therapeutic program and the unit milieu. Is in constant motion, with a box-step movement that she says is to a degree self-soothing and to a degree compulsive (in that she feels more anxious if she suppresses it). Tolerating medication well. 05/23/22: Reports poor sleep with vivid nightmares that she still can't stop thinking about. She volunteers that she will not divulge the content. Is ce rtainly a bit more talkative and interactive today. Voices surprise to learn that other people have symptoms similar to hers. Discussed trial of prazosin for nightmares at length. (1) Major depressive disorder, single episode, severe without psychotic features: (2) Panic disorder: (3) JENARO (generalized anxiety disorder): Plan 05/25/22: Cautious increase of prazosin to 3 mg QHS, monitor BP closely. Maintain duloxetine 30 mg with planned increase after tomorrow morning's dose if tolerated. 05/24/22: Increase prazosin to 2 mg QHS. Discontinue escitalopram to conclude taper. Increase duloxetine to 30 mg. 05/23/22: Start prazosin 1 mg PO QHS. Anticipate titration of duloxetine to 30 mg tomorrow. 05/22/22: Discussed at length prioritizing syndromes by potential severity - i.e., focusing on depression and panic now while keeping OCD in mind and considering possibility of ADHD later. Discussed at length treatment options, focusing on SNRI, which could be effective for major depression, panic disorder, and OCD. Will start duloxetine [address] of escitalopram with plan of titrating to 40 mg daily as tolerated. Will use hydroxyzine for immediate management of panic/anxiety. Suicide Risk Level Suicide Risk Level: Low (q15 min observation checks) Risk Factors Assessment Male: No : Yes Do You Have Access To A Gun?: No Health Problems: No Mental Health Diagnoses: No Previous Attempt: No Family History of Suicide: No Previous Psychiatric Hospitalization: No Protective Factors Assessment Employed: No Interval History Identifying Information RUBEN ESPINO is a 22-year-old F who currently lives in a 1-bedroom apartment with 3 roommates, has a history of no previously-recognized psychiatric problems, and was admitted on 05/22/22 05:20 on a 201 voluntary commitment for panic and self-cutting. Chief Complaint "Nightmares weren't as bad". Review of Systems Sleep Information Total Hours of Sleep: 7 Sleep Comments: Reported difficulty sleeping and anxiety; received Vistaril for sleep and given sound machine and headphones Meal Information Percent Meal Consumed - Breakfast: 0 Percent Meal Consumed - Lunch: 50 Percent Meal Consumed - Dinner: 80 Subjective Subjective Patient was seen & assessed and interval progress reviewed with treatment team nursing and social work Physical Exam Psychiatric Orientation: alert, oriented x 3 and cooperative Apperance: appropriately dressed and appeared stated age Eye Contact: + fair eye contact and + poor eye contact Motor Behavior: + psychomotor agitation Affect: + anxious affect and + tearful affect Mood: + depressed mood and + anxious mood Thought Process: linear/logical thought process and clear/coherent thought process Thought Content: + obsessions, + cognitive distortions, + compulsions, + phobias and + loneliness Suicidal Thoughts: denies suicidal thoughts Homicidal Thoughts: denies homicidal thoughts Hallucinations: no auditory hallucinations and no visual hallucinations Cognition: recent memory grossly intact, remote memory grossly intact and attention grossly intact Estimated Intelligence: average estimated intelligence Insight: + fair insight Judgement: good judgement Vital Signs (Past 24 Hours) Last Vital Signs Temp 37 C 05/25/22 06:37 Pulse 108 H 05/25/22 06:37 Resp 16 05/25/22 06:37 BP 86/55 L 05/25/22 06:37 Pulse Ox 98 05/22/22 19:16 O2 Del Method 05/22/22 19:16 Results & Data ([facility]) Current Inpatient Medications Current Inpatient Medications: Current Inpatient Medications Acetaminophen (Acetaminophen 325 Mg Tab) 650 mg PO Q4H PRN PRN Reason: Headache or Minor Fever Stop: 06/21/22 05:19 Last Admin: 05/23/22 22:42 Dose: 650 mg Al Hydrox/Mg Hydrox/Simethicone (Aluminum/Magnesium Susp 30 Ml Udc) 30 ml PO Q4H PRN PRN Reason: GI Upset Stop: 06/21/22 05:19 Bismuth Subsalicylate (Bismuth Subsalicylate Liqd 236 Ml) 15 ml PO PRN PRN PRN Reason: Loose Stool Stop: 06/21/22 05:19 Duloxetine HCl (Duloxetine Hcl 30 Mg Cap) 30 mg PO QAM [facility] Stop: 06/24/22 08:59 Hydroxyzine HCl (Hydroxyzine Hcl 25 Mg Tab) 50 mg PO HSZ PRN PRN Reason: Insomnia Stop: 06/21/22 05:19 Last Admin: 05/23/22 02:05 Dose: 50 mg Hydroxyzine HCl (Hydroxyzine Hcl 25 Mg Tab) 25 mg PO Q4H PRN PRN Reason: Anxiety Stop: 06/21/22 05:19 Last Admin: 05/24/22 16:54 Dose: 25 mg Magnesium Hydroxide (Magnesium Hydroxide Susp 30 Ml Udc) 30 ml PO DAILY PRN PRN Reason: Constipation Stop: 06/21/22 05:19 Miscellaneous (Remove Nicoderm Patch) 1 each N/A DAILY@0859 [facility] Stop: 06/22/22 08:58 Last Admin: 05/24/22 10:14 Dose: Not Given Nicotine (Nicotine 14 Mg/24 Hr Patch) 14 mg TD QAM [facility] Stop: 06/22/22 08:59 Last Admin: 05/24/22 10:13 Dose: 14 mg Nicotine Polacrilex (Nicotine Polacrilex 2 Mg Gum) 1 - 2 piece MT Q4 PRN PRN Reason: nicotine withdrawal Stop: 06/21/22 13:53 Last Admin: 05/22/22 19:56 Dose: 2 piece Prazosin HCl (Prazosin Hcl 1 Mg Cap) 2 mg PO HS [facility] Stop: 06/23/22 21:59 Last Admin: 05/24/22 21:05 Dose: 2 mg Sodium Chloride (Sodium Chloride 0.65% Na Soln 45 Ml ([place])) 1 - 2 sprays NA PRN PRN PRN Reason: Nasal Dryness/Congestion Stop: 06/21/22 05:19
[2022-05-25] MEDS: DULoxetine HCL 30 MG CAP PO SCH (10:03)
[2022-05-25] MEDS: NICOTINE 14 MG/24 HR PATCH TD SCH (10:03)
[2022-05-25] MEDS: hydrOXYzine HCl 25 MG TAB PO PRN ×2 (10:54→21:20)
[2022-05-25] MEDS ORDERED: PRAZOSIN HCL 1 MG CAP PO SCH (22:00)
--- NOTE | 2022-05-26 07:54 | Discharge Summary ---
Date of Service May 26, 2022 History of Present Illness Pt had a recent breakup with her long-distance boyfriend of 2 years recently, which she cites along with the stresses of having started college as what she thinks has led to significant worsening of her long-standing anxiety. She been having increasingly frequent, longer-lasting, and more severe panic episodes. While she says she hasn't felt suicidal, she has felt overwhelmed and helpless and has been cutting in an attempt to "feel something". She has not slept well, has little appetite, and is less interested in as well as less able to enjoy her usual activities. She wonders if she "might have OCD" like her father. She reports constant intrusive self-doubts, a horror of making anyone mad at her, a need to have belongings arranged "properly" in ways she can't really describe. She must keep books pristine to the extent of not actually reading them. She often counts her steps in order to ensure that she arrives at certain waypoints at a multiple of 10. In restaurants she must sit in a specific seat that's dictated by where certain others (including strangers) sit. She notes a family history of anxiety and that her father has severe (and as far she knows untreated) OCD. Physical Exam Psychiatric Orientation: alert, oriented x 3 and cooperative Apperance: appropriately dressed and appeared stated age Eye Contact: + fair eye contact and + poor eye contact Motor Behavior: + psychomotor agitation Affect: + anxious affect and + tearful affect Mood: + depressed mood and + anxious mood Thought Process: linear/logical thought process and clear/coherent thought process Thought Content: + obsessions, + cognitive distortions, + compulsions, + phobias and + loneliness Suicidal Thoughts: denies suicidal thoughts Homicidal Thoughts: denies homicidal thoughts Hallucinations: no auditory hallucinations and no visual hallucinations Cognition: recent memory grossly intact, remote memory grossly intact and attention grossly intact Estimated Intelligence: average estimated intelligence Insight: + fair insight Judgment: good judgement Vital Signs (Past 24 Hours) Last Vital Signs Temp 36.7 C 05/26/22 06:50 Pulse 101 H 05/26/22 06:50 Resp 16 05/26/22 06:50 BP 91/63 L 05/26/22 06:50 Pulse Ox 98 05/22/22 19:16 O2 Del Method 05/22/22 19:16 Principal Diagnosis Major Depressive Disorder, Recurrent, Severe without psychotic features Psychiatric Data See daily stay summary. In short, safety was maintained and the patient was cooperative with care. Medication changes included cross-titration from escitalopram to duloxetine and they tolerated this well. A family session was held and safety plan was completed prior to discharge. Day of Discharge Assessment Today the patient voices readiness for discharge. They note improvement in mood and deny thoughts to harm self or others. Thoughts remain organized and they are improved from admission. There is no evidence of psychosis. They agree to take mediations as prescribed and keep follow-up appointments. They are stable for discharge to outpatient level of care. Advance Directives Advance Directives Information Provided: Yes Advance Directives: No Mental Health Advance Directive: No Advance Directives on File: No Living Will: No Power of Petroleum Sampler: No Advance Directives Reason:: Declines as Mental Health Visit. Suicide Risk Level Suicide Risk Level: Low (q15 min observation checks) Risk Factors Assessment Male: No : Yes Do You Have Access To A Gun?: No Health Problems: No Mental Health Diagnoses: No Previous Attempt: No Family History of Suicide: No Previous Psychiatric Hospitalization: No Protective Factors Assessment : No Employed: No Supportive Family: Yes Tobacco Cessation at Discharge Tobacco Cessation Medication Prescribed at Discharge: Not Applicable/Non-Smoker Total Time Total Time Spent: Greater Than 30 Minutes Discharge Data Lab Results 05/22/22 05/22/22 05/22/22 01:05 01:05 01:05 WBC RBC Hgb Hct MCV MCH MCHC RDW Std Deviation RDW Coeff of Serene Plt Count MPV Immature Gran % (Auto) Neut % (Auto) Lymph % (Auto) [place] % (Auto) Eos % (Auto) Baso % (Auto) Neut # (Auto) Lymph # (Auto) [place] # (Auto) Eos # (Auto) Baso # (Auto) Immature Gran # (Auto) Sodium Potassium Chloride Carbon Dioxide Anion Gap BUN Creatinine Est Cr Clr Drug Dosing Est GFR ( Amer) Est GFR (Non-Af Amer) BUN/Creatinine Ratio Glucose Calcium Total Bilirubin AST ALT Alkaline Phosphatase Total Protein Albumin Globulin Albumin/Globulin Ratio TSH Urine Color Yellow Urine Appearance Clear Urine pH 6.5 Ur Specific [place] 1.020 Urine Protein Negative Urine Glucose (UA) Negative Urine Ketones Negative Urine Blood Negative Urine Nitrite Negative Urine Bilirubin Negative Urine Urobilinogen Negative Ur Leukocyte Esterase Negative POC Ur Test NEG Salicylates Urine Opiates Screen Neg Ur Methadone, Qual Neg Acetaminophen Urine Barbiturates Neg Ur Phencyclidine (PCP) Neg U Amphetamin/Meth Scrn Neg MDMA (Ecstasy) Screen Neg U Benzodiazepines Scrn Neg Ur Cocaine Metabolite Neg U Marijuana (THC) Screen Neg Ethyl Alcohol mg/dL SARS-CoV-2, RNA, NAAT 05/22/22 05/22/22 05/22/22 01:05 01:20 01:20 WBC 13.04 H RBC 4.69 Hgb 14.1 Hct 39.3 MCV 83.8 MCH 30.1 MCHC 35.9 RDW Std Deviation 36.6 RDW Coeff of Serene 12.1 Plt Count 260 MPV 9.7 Immature Gran % (Auto) 0.4 Neut % (Auto) 85.3 Lymph % (Auto) 8.0 [place] % (Auto) 5.6 Eos % (Auto) 0.3 Baso % (Auto) 0.4 Neut # (Auto) 11.13 H Lymph # (Auto) 1.[address] [place] # (Auto) 0.73 H Eos # (Auto) 0.04 Baso # (Auto) 0.05 Immature Gran # (Auto) 0.05 Sodium 137 Potassium 3.5 Chloride 104 Carbon Dioxide 22 Anion Gap 11 BUN 8 Creatinine 0.64 Est Cr Clr Drug Dosing 116.0 Est GFR ( Amer) 148.9 Est GFR (Non-Af Amer) 128.5 BUN/Creatinine Ratio 12.5 Glucose 104 H Calcium 9.7 Total Bilirubin 0.9 AST 18 ALT 18 Alkaline Phosphatase 68 Total Protein 7.5 Albumin 4.6 Globulin 2.9 Albumin/Globulin Ratio 1.6 TSH Urine Color Urine Appearance Urine pH Ur Specific [place] Urine Protein Urine Glucose (UA) Urine Ketones Urine Blood Urine Nitrite Urine Bilirubin Urine Urobilinogen Ur Leukocyte Esterase POC Ur Test Salicylates Urine Opiates Screen Ur Methadone, Qual Acetaminophen Urine Barbiturates Ur Phencyclidine (PCP) U Amphetamin/Meth Scrn MDMA (Ecstasy) Screen U Benzodiazepines Scrn Ur Cocaine Metabolite U Marijuana (THC) Screen Ethyl Alcohol mg/dL SARS-CoV-2, RNA, NAAT NEGATIVE 05/22/22 05/22/22 05/22/22 01:20 01:20 01:20 WBC RBC Hgb Hct MCV MCH MCHC RDW Std Deviation RDW Coeff of Serene Plt Count MPV Immature Gran % (Auto) Neut % (Auto) Lymph % (Auto) [place] % (Auto) Eos % (Auto) Baso % (Auto) Neut # (Auto) Lymph # (Auto) [place] # (Auto) Eos # (Auto) Baso # (Auto) Immature Gran # (Auto) Sodium Potassium Chloride Carbon Dioxide Anion Gap BUN Creatinine Est Cr Clr Drug Dosing Est GFR ( Amer) Est GFR (Non-Af Amer) BUN/Creatinine Ratio Glucose Calcium Total Bilirubin AST ALT Alkaline Phosphatase Total Protein Albumin Globulin Albumin/Globulin Ratio TSH 0.886 Urine Color Urine Appearance Urine pH Ur Specific [place] Urine Protein Urine Glucose (UA) Urine Ketones Urine Blood Urine Nitrite Urine Bilirubin Urine Urobilinogen Ur Leukocyte Esterase POC Ur Test Salicylates < 3.0 L Urine Opiates Screen Ur Methadone, Qual Acetaminophen < 3 L Urine Barbiturates Ur Phencyclidine (PCP) U Amphetamin/Meth Scrn MDMA (Ecstasy) Screen U Benzodiazepines Scrn Ur Cocaine Metabolite U Marijuana (THC) Screen Ethyl Alcohol mg/dL < 10.0 SARS-CoV-2, RNA, NAAT Hospital Course (1) Major depressive disorder, single episode, severe without psychotic features: (2) Panic disorder: (3) JENARO (generalized anxiety disorder): Plan 05/25/22: Cautious increase of prazosin to 3 mg QHS, monitor BP closely. Maintain duloxetine 30 mg with planned increase after tomorrow morning's dose if tolerated. 05/24/22: Increase prazosin to 2 mg QHS. Discontinue escitalopram to conclude taper. Increase duloxetine to 30 mg. 05/23/22: Start prazosin 1 mg PO QHS. Anticipate titration of duloxetine to 30 mg tomorrow. 05/22/22: Discussed at length prioritizing syndromes by potential severity - i.e., focusing on depression and panic now while keeping OCD in mind and considering possibility of ADHD later. Discussed at length treatment options, focusing on SNRI, which could be effective for major depression, panic disorder, and OCD. Will start duloxetine [address] of escitalopram with plan of titrating to 40 mg daily as tolerated. Will use hydroxyzine for immediate management of panic/anxiety. Mental Health & Subst Abuse Tx Psychiatrist Name of Psychiatrist: [facility] - Intake Appointment Psychiatrist's Date Of Appointment With Psychiatric Provider: 05/28/22 Time of Appointment with Psychiatrist: 3:00 PM Psychiatric Appointment Comment: A link will be sent to your email. Please complete consents before appt. Therapist Name of Therapist: [facility] - Intake Appointment Therapist's Date of Therapist Appointment: 05/28/22 Time of Therapist Appointment: 3:00 PM Therapy Appointment Comment: A link will be sent to your email. Please complete consents before appt. Post Discharge Appointments Primary Care Physician Name Of Family Doctor/PCP: Fátima Guerrero - Dr. Kaplan Provider Appointment Comment: Please follow-up with PCP as needed. Smoking Cessation Counseling Tobacco Cessation Medication Prescribed at Discharge: Not Applicable/Non-Smoker Contact Information Discharge Discharge Address: [address] [place] [address] Discharge Plan Discharge Items Patient Disposition: Home - Self-Care Reason For Visit: MDD Discharge Diagnosis: Major Depresion, Recurrent Panic Disorder Obsessive-compulsive Disorder Generalized Anxiety Disorder Condition on Discharge: Good Activity: Resume your previous activity Non-emergency contact: Primary Care Provider and Psychiatrist Call non-emergency contact if: you have any medication questions and your symptoms worsen Follow-up/Referrals: [place] [Primary Care Provider] - Diet: Regular Addtl Attending Provider Instructions: SPECIAL CARE INSTRUCTIONS: 1. Follow through with your scheduled aftercare appointments. If unable to keep an appointment, please call to reschedule. 2. Take your medication only as prescribed. Medication should not be changed or stopped without the approval of your doctor. In the event of worsening symptoms or concerns about side effects, contact your doctor immediately. 3. Utilize new healthy coping skills, anger management skills, and stress management skills learned during your hospitalization. Journal feelings and process them with a support person. Identify stressors or situations that may result in relapse, deterioration or inappropriate behaviors and develop a plan to deal with those issues. 4. If your coping skills are ineffective and you are in crisis, contact your outpatient providers for direction. If unable to reach your providers, please call the [facility] CRISIS LINE AT , go to the [facility] walk-in center at [address] [place] [address], [address], [place], or go to the closest Emergency Room. 5. Avoid alcohol and un-prescribed drugs. 6. You have been provided with the Mental Health Advance Directives Pamphlet for your review. 7. Your condition is stable for discharge to outpatient level of care, but recovery is an ongoing process. Ifthoughts to harm yourself or others return, follow the safety plan developed during your stay. Planning for a safe return home includes securing weapons. Our treatment team recommends weaponsbe removed from the home until your outpatient provider reassesses your progress. In rare cases where the items themselvescannot be removed, guns and ammunitionshould be secured separatelyand keys stored by a reliable personoutside of the home. If you were admitted on an involuntary commitment, the police or other legal authorities may be involved in this process. AFTERCARE APPOINTMENTS: * Please call your insurance company prior to your scheduled appointment to confirm your aftercare providers are covered. Take your insurance information to your appointments. WHO TO CALL AND WHEN: Medical Emergencies: For questions or emergencies related to your hospital stay, please contact the Inpatient Behavioral Health Unit at [phone]. A vegetable worker is on-call 16/11 for the Behavioral Health Unit for emergencies At any time you feel your situation is an emergency, you may also call 911 immediately. Pending Studies at Discharge: No Stand-Alone Forms: My [facility] Medications and DC Order Prescriptions: New prazosin 1 mg Capsule 3 mg PO HS 30 Days Qty: 90 0RF hydroxyzine HCl 25 mg Tablet 50 mg PO HSZ PRN (Reason: insomnia) 30 Days Qty: 60 0RF hydroxyzine HCl 25 mg Tablet 25 mg PO Q4H PRN (Reason: anxiety) 30 Days Qty: 120 0RF duloxetine 30 mg Capsule,Delayed Release(Dr/Ec) 30 mg PO QAM 30 Days Qty: 30 0RF Discontinued escitalopram oxalate 5 mg tablet 5 mg PO DAILY hydroxyzine HCl 25 mg tablet 25 mg PO TID PRN (Reason: Anxiety) Discharge Orders: Discharge Order (Routine); Ordered 05/26/22 Ordered By: Mynor Da Silva Admission Data Admit Date/Time: 05/22/22 05:20 Attending Provider: Mynor Da Silva Admit Provider: Mynor Da Silva Primary Care Provider: [place] Other Interventions: Discharge Summary Assessment (RN) Last Done: 05/26/22 09:10 PSY Interdisciplinary Discharge Planning Last Done: 05/25/22 12:55 Coding Level of Care Code 45601 D/C day mgmt > 30 min Diagnoses Major depressive disorder, single episode, severe without psychotic features F32.2 Panic disorder F41.0 JENARO (generalized anxiety disorder) F41.1 Time Spent (min) 36
[2022-05-26] MEDS: NICOTINE 14 MG/24 HR PATCH TD SCH (08:51)
[2022-05-26] MEDS: DULoxetine HCL 30 MG CAP PO SCH (08:52)
== END 2022-05-26 10:20 | disposition home or self-care (01) | DRG 885 ==
LOC: ED 00:53 → 3S 05:20